=== PATIENT | female | born 1990 | race Two or more races ===

== ENCOUNTER 2018-08-06 21:33 | Emergency (ER) | payer SELFPAY ==
[2018-08-06] MEDS ORDERED: CLINDAMYCIN HCL 150 MG CAPSULE PO ONE (23:46)
[2018-08-06] MEDS ORDERED: ONDANSETRON 4 MG TAB.RAPDIS PO ONE (23:47)
[2018-08-06] MEDS ORDERED: HYDROCODONE/ACETAMINOPHEN 5-325 MG (6 TAB/ER DISP) PO PRN (23:47)
[2018-08-06] MEDS ORDERED: OXYCODONE-ACETAMINOPHEN 5-325 MG TABLET PO ONE (23:47)
--- NOTE | 2018-08-06 23:55 | ER Document Report ---
HPI - HPI Patient complains to provider of: dental pain, facial swelling Time Seen by Provider: 08/06/18 23:38 Pain Level: 4 Context: Patient is a 28-year-old female that comes to the emergency department for chief complaint of dental pain with swelling of the left cheek/face. She states that her upper gums on the left side or swallowing. She states that symptoms started previous morning and have gradually worsened. She has tried Orajel without significant improvement. Patient does not currently have a dentist. Patient denies sore throat, neck pain, fever. LMP within the past month. Denies any daily medications or medical history. - DERM Skin Color: Normal, [place] Past Medical History - General Information source: Patient - Social History Smoking Status: Never Smoker Drug Abuse: None Lives with: Family Family History: Reviewed & Not Pertinent Patient has suicidal ideation: No Patient has homicidal ideation: No - Medical History Medical History: Negative Renal/ Medical History: Denies: Hx Peritoneal Dialysis Surgical Hx: Negative - Immunizations Immunizations up to date: Yes Hx Diphtheria, Pertussis, Tetanus Vaccination: Yes Vertical Provider Document - CONSTITUTIONAL General Appearance: WD/WN, No Apparent Distress - INFECTION CONTROL TRAVEL OUTSIDE OF THE [place] IN LAST 30 DAYS: No - HEENT HEENT: Atraumatic, Normocephalic. negative: Conjuctival Injection, Normal ENT Exam - There is mild swelling of the face at the left upper jaw area, no induration or fluctuance, open his mouth completely, no submandibular or submental swelling or pain, unremarkable facial exam otherwise., Pharyngeal Exudate, Pharyngeal Tenderness, Pharyngeal Erythema Mouth Diagram: 1 - Dental caries, erythema of the gumline and tenderness of the gumline without swelling. No induration or fluctuance. Unremarkable oropharyngeal exam otherwise. - NECK Neck: Normal Inspection - No evidence of Florencio's angina. negative: Lymphadenopathy-Left, Lymphadenopathy-Right - RESPIRATORY Respiratory: Breath Sounds Normal, No Respiratory Distress - CARDIOVASCULAR Cardiovascular: Regular Rate, Regular Rhythm - GI/ABDOMEN Gastrointestinal: Abdomen Soft, Abdomen Non-Tender - BACK Back: Normal Inspection - MUSCULOSKELETAL/EXTREMETIES Musculoskeletal/Extremeties: MAEW, FROM, Non-Tender - NEURO Level of Consciousness: Awake, Alert, Appropriate - DERM Integumentary: Warm, Dry, No Rash Course - Re-evaluation Re-evalutation: Examination consistent with dental caries and secondary developing infection with minimal facial swelling, no evidence of abscess at this time, no other concerning abnormality noted. Patient placed on clindamycin, provided with dental referral, discussed treatment and return precautions in detail with patient. Patient states understanding and agreement with plan. - Vital Signs Vital signs: Temp Pulse Resp BP Pulse Ox 99.5 F 83 20 132/83 H 100 08/06/18 21:36 08/06/18 21:36 08/06/18 21:36 08/06/18 21:36 08/06/18 21:36 Discharge - Discharge Clinical Impression: Dental infection, Pain, dental, Facial swelling Condition: Stable Disposition: HOME, SELF-CARE Additional Instructions: Your evaluation indicates a dental infection. Take the clindamycin antibiotic as prescribed to completion. I recommend an [id number] probiotic while taking this to avoid diarrhea. Follow-up with a dentist or this will continue to happen, see referral below, call for follow-up. Return if you worsen including increased facial swelling, fever, etc. [facility] [address], [address] Prescriptions: Clindamycin HCl [Cleocin 150 mg Capsule] 150 mg PO Q6 #56 capsule Forms: Return to Work
[2018-08-07 00:14] VITALS: BP 136/98
== END 2018-08-07 00:14 | disposition home or self-care (01) ==
LOC: ER 21:33
DX: K04.7 Periapical abscess without sinus (principal); K02.9 Dental caries, unspecified; R22.0 Localized swelling, mass and lump, head; K08.89 Other specified disorders of teeth and supporting structures
CPT/HCPCS: 99282; S0119